=== PATIENT | female | born 1940 | race Caucasian/White ===

== ENCOUNTER 2019-06-09 17:38 | Inpatient (IN) | payer MEDICARE, MEDICAID ==
[~2019-06-09] VITALS: Ht 167.6 cm; Wt 70.3 kg
[2019-06-09] MEDS ORDERED: OLANZAPINE 10 MG VIAL IM ONE (18:00)
--- NOTE | 2019-06-09 18:05 | NUR ---
BIBDAUGHTER, SENT BY DR. HERNANDEZ FOR PSYCH MEDICAL CLEARANCE DUE TO AGGRESSIVE BEHAVIOR, HITTING HER DAUGHTER AND . PT IS MAURITANIAN-SPEAKING, NO GUAMANIAN. DOES NOT WANT TO SIT IN BED. ALERT, STABLE VITALS, AMBULATORY, RR EVEN AND UNLABORED. NO ACUTE DISTRESS NOTED. READY FOR EVAL.
--- NOTE | 2019-06-09 18:24 | NUR ---
SHIPPING RECEIVING CLERK/MED RECON UNABLE TO UPDATE MED-RECON AT THIS TIME. UNABLE TO OBTAIN INFO FROM THE PATIENT. PER DAUGHTER-TERET WILL BRING HOME MEDICATION SUPPLY LATER OR [facility]. PER DAUGHTER PREFFERED PHARMACY CLOSED DOWN LAST WEEK AND PCP OFFICE IS ALREADY CLOSE. PRIMARY NURSE AWARE.
[2019-06-09 18:55] LABS: BASOPHILS % (AUTO) 0.5 % (0.0-2.0); EOSINOPHILS % (AUTO) 2.4 % (0.0-6.0); HEMATOCRIT 41 % (33-45); HEMOGLOBIN 13.5 g/dL (11.5-14.8); LYMPHOCYTES # (AUTO) 1.7 /CMM (0.8-4.8); LYMPHOCYTES % (AUTO) 30.6 % (20.0-44.0); MEAN CORPUSCULAR HGB CONC 33 g/dl (31.0-36.0); MEAN CORPUSCULAR VOLUME 86 fL (82-100); MONOCYTES # (AUTO) 0.4 /CMM (0.1-1.30); MONOCYTES % (AUTO) 6.4 % (2.0-12.0); NEUTROPHILS # (AUTO) 3.3 /CMM (1.8-8.9); NEUTROPHILS % (AUTO) 60.1 % (43.0-81.0); PLATELET COUNT (AUTO) 234 /CMM (150-450); RED BLOOD CELL COUNT(AUTO) 4.83 MIL/uL (4.0-5.2); WHITE BLOOD COUNT (AUTO) 5.5 K/uL (4.3-11.0)
[2019-06-09 19:16] LABS: ALANINE AMINOTRANSFERASE 14 U/L (12-78); ALBUMIN 3.7 g/dL (3.4-5.0); ALKALINE PHOSPHATASE 66 U/L (46-116); ASPARTATE AMINOTRANSFERASE 11 U/L (15-37); BILIRUBIN,DIRECT 0.1 mg/dL (0.0-0.2); BILIRUBIN,TOTAL 0.5 mg/dL (0.2-1.0); CARBON DIOXIDE 31 mmol/L (21-32); CHLORIDE 105 mmol/L (98-107); CREATININE 1.1 mg/dL (0.6-1.3); GLUCOSE 109 mg/dL (74-106); SODIUM SERUM 142 mmol/L (136-145); TOTAL PROTEIN, SERUM 7.5 g/dL (6.4-8.2); UREA NITROGEN, BLOOD 19 mg/dL (7-18)
[2019-06-09 19:17] LABS: ACETAMINOPHEN < 5 ug/ml (10-30); SALICYLATE 0.2 mg/dL (2.8-20.0)
[2019-06-09 19:26] LABS: ALCOHOL, BLOOD < 3 mg/dL (0-0)
--- NOTE | 2019-06-09 20:42 | NUR ---
DIESEL SCOOP OPERATOR PINKY AT BEDSIDE FOR EVAL
--- NOTE | 2019-06-09 21:56 | NUR ---
REPORT GIVEN TO SHEILA DEL ANGEL FOR 211
--- NOTE | 2019-06-09 22:20 | NUR ---
PT TRANSFERRED TO UNIT VIA WC
--- NOTE | 2019-06-09 22:30 | NUR ---
ADMITTED THIS 79 YEARS OLD FEMALE FROM E. PATIENT WAS PLACED ON 5150 DUE TO AGGRESSIVE BEHAVIOR, GRAVELY DISABLE, . UPON FACE TO FACE ASSESSMENT PATIENT DENIES ANY SI/HI AT THIS TIME, NO BEHAVIOR PROBLEM NOTED, PATIENT ALERT, ORIENTED X 2 AMBULATORY DAUGHTER SIGN THE CONSENT PAPER DUE TO PATIENT IS UNABLE TO SPEAK BARBADIAN, ADVISEMENT EXPLAIN AND SERVE TO THE PATIENT WITH HOSPITAL POLICY AND HAND BOOK, SKIN ASSESSMENT IS DONE SKIN IS INTACT PATENT, NO OPEN WOUND OR BRUISES NOTED DAVID YOON AND VIPUL YOON NOTIFY MED RECON IS DONE. WILL CONTINUES TO MONITOR THE PATIENT FOR SAFETY AND FALL AND ENDORSE TO THE ONCOMING NURSE TO CONTINUITY OF CARE .
[2019-06-09] MEDS ORDERED: CELE200C PO (22:49)
[2019-06-09] MEDS: TEMAZEPAM 7.5 MG CAPSULE PO PRN (23:26)
[2019-06-09] MEDS ORDERED: MAGNESIUM HYDROXIDE 30 ML UDC PO PRN (23:30)
[2019-06-09] MEDS ORDERED: ACETAMINOPHEN 325 MG TABLET PO PRN (23:30)
[2019-06-09] MEDS ORDERED: MAG HYDROX/AL HYDROX/SIMETH 30 ML UDC PO PRN (23:30)
[2019-06-10 08:00] VITALS: BP 101/70
[2019-06-10] MEDS: CELECOXIB 100 MG CAPSULE PO SCH ×2 (08:29→21:19)
--- NOTE | 2019-06-10 10:56 | NUR ---
AFIA contacted pts daughter Maira [phone] and left a voicemail for callback.
[2019-06-10] MEDS: OLANZAPINE 2.5 MG TABLET PO SCH ×2 (12:13→21:19)
--- NOTE | 2019-06-10 13:10 | NUR ---
SW met with pts daughter Maira [phone] on this present day and received collateral information and discussed discharge and treatment planning. Daughter stated that she does not want pt to be hospitalized any longer than she needs to as she feels the psychiatric unit is not the best environment for pt. Daughter also stated that she is exploring SNF placement and would inform SW of her decision once she discussed it with pts and son.
[2019-06-10] MEDS: ENSURE ENLIVE 237 ML LIQUID (VANILLA) PO SCH ×2 (14:00→17:00)
--- NOTE | 2019-06-10 14:08 | NUR ---
INITIAL DISCHARGE PLAN: Per daughter Maira [phone] she wishes for pt to be discharged back home [address] [place] [address] but is also exploring SNF placement. AFIA will help form a safe and proper discharge in collaboration with .
[2019-06-10 15:44] LABS: APPEARANCE,URINE SL CLOUDY (CLEAR); BILIRUBIN,URINE NEGATIVE (NEGATIVE); BLOOD, URINE NEGATIVE Ery/uL (NEGATIVE); COLOR,URINE YELLOW (YELLOW); KETONES,URINE NEGATIVE (NEGATIVE); LEUKOCYTE ESTERASE ,URINE 1+ (NEGATIVE); NITRITE, URINE NEGATIVE (NEGATIVE); PROTEIN,URINE TRACE mg/dl (NEGATIVE); UGLUCOSE NEGATIVE (NEGATIVE)
--- NOTE | 2019-06-10 15:47 | NUR ---
GROUP NOTE: SW prompted pt to participate in group session on this present day discussing "treatment compliance." Pt is unable to engage in a meaningful conversation due to her Dementia and only being alert to self. SW used Setswana help desk assistant to engage pt however, pt was confused, disoriented, and disorganized.
[2019-06-10 15:59] LABS: RBC,URINE 0-2 /HPF (0-2)
[2019-06-10 16:00] VITALS: BP 126/78
[2019-06-10 16:00] LABS: BACTERIA,URINE Moderate /HPF (None Seen); SQUAMOUS EPITHELIAL CELL,UR Many /HPF (None Seen)
[2019-06-10] MEDS: LORAZEPAM 0.5 MG TABLET PO PRN (17:08)
[2019-06-10 20:00] VITALS: BP 98/67
[2019-06-10] MEDS: TEMAZEPAM 7.5 MG CAPSULE PO PRN (21:19)
[2019-06-11 08:00] VITALS: BP_SYST 126; BP_SYST 129; BP_DIAS 64; BP_DIAS 71
[2019-06-11] MEDS: ENSURE ENLIVE 237 ML LIQUID (VANILLA) PO SCH ×3 (08:10→16:25)
[2019-06-11] MEDS: OLANZAPINE 2.5 MG TABLET PO SCH ×4 (08:10→21:19)
[2019-06-11] MEDS: CELECOXIB 100 MG CAPSULE PO SCH ×2 (08:10→21:20)
--- NOTE | 2019-06-11 09:45 | NUR ---
GPS RN NOTE: DR. STACK NOTIFIED PT UA LABS, NO NEW ORDERS AT THIS TIME. WILL CONTINUE MONITORING.
[2019-06-11 11:25] LABS: BASOPHILS % (AUTO) 0.5 % (0.0-2.0); EOSINOPHILS % (AUTO) 1.9 % (0.0-6.0); HEMATOCRIT 40 % (33-45); HEMOGLOBIN 13.4 g/dL (11.5-14.8); LYMPHOCYTES # (AUTO) 1.4 /CMM (0.8-4.8); LYMPHOCYTES % (AUTO) 24.5 % (20.0-44.0); MEAN CORPUSCULAR HGB CONC 33 g/dl (31.0-36.0); MEAN CORPUSCULAR VOLUME 85 fL (82-100); MONOCYTES # (AUTO) 0.4 /CMM (0.1-1.30); MONOCYTES % (AUTO) 6.1 % (2.0-12.0); NEUTROPHILS # (AUTO) 3.9 /CMM (1.8-8.9); PLATELET COUNT (AUTO) 212 /CMM (150-450); RED BLOOD CELL COUNT(AUTO) 4.75 MIL/uL (4.0-5.2); WHITE BLOOD COUNT (AUTO) 5.8 K/uL (4.3-11.0)
[2019-06-11 11:39] LABS: CHOLESTEROL 167 mg/dL (<200); HDL CHOLESTEROL 43 mg/dL (40-60); LDL 113 mg/dL (0-99); TRIGLYCERIDES 82 mg/dL (30-150)
[2019-06-11 11:47] LABS: CALCIUM, SERUM 8.5 mg/dL (8.5-10.1); CARBON DIOXIDE 29 mmol/L (21-32); CHLORIDE 104 mmol/L (98-107); CREATININE 0.9 mg/dL (0.6-1.3); GLUCOSE 97 mg/dL (74-106); POTASSIUM 3.9 mmol/L (3.5-5.1); SODIUM SERUM 141 mmol/L (136-145); UREA NITROGEN, BLOOD 17 mg/dL (7-18)
[2019-06-11] MEDS: DIVALPROEX SODIUM 125 MG CAP.SPRINK PO SCH ×2 (12:14→21:19)
--- NOTE | 2019-06-11 15:01 | NUR ---
GROUP NOTE: SW prompted pt to participate in group session on this present day discussing "discharge planing." Pt is unable to engage in a meaningful conversation due to her Dementia and only being alert to self.
[2019-06-11 20:00] VITALS: BP 128/65
--- NOTE | 2019-06-12 06:24 | NUR ---
GPS RN NOTES: PT. REMOVING HER ID BAND, THROWING IN TRASH, PLACED PT. ID IN CHART.
[2019-06-12 08:00] VITALS: BP 139/76
[2019-06-12] MEDS: OLANZAPINE 2.5 MG TABLET PO SCH ×4 (08:00→21:34)
[2019-06-12] MEDS: ENSURE ENLIVE 237 ML LIQUID (VANILLA) PO SCH ×3 (08:41→17:00)
[2019-06-12] MEDS: DIVALPROEX SODIUM 125 MG CAP.SPRINK PO SCH ×2 (09:00→21:34)
[2019-06-12] MEDS: CELECOXIB 100 MG CAPSULE PO SCH ×2 (09:00→21:34)
[2019-06-12 16:05] VITALS: BP 131/64
[2019-06-12 20:00] VITALS: BP 132/78
[2019-06-12] MEDS: TEMAZEPAM 7.5 MG CAPSULE PO PRN (23:56)
[2019-06-13 08:00] VITALS: BP 161/74
[2019-06-13] MEDS: OLANZAPINE 2.5 MG TABLET PO SCH ×4 (08:10→21:21)
[2019-06-13] MEDS: CELECOXIB 100 MG CAPSULE PO SCH ×2 (08:10→21:00)
[2019-06-13] MEDS: ENSURE ENLIVE 237 ML LIQUID (VANILLA) PO SCH ×3 (08:10→17:39)
[2019-06-13] MEDS: DIVALPROEX SODIUM 125 MG CAP.SPRINK PO SCH ×2 (08:10→21:00)
[2019-06-13 16:00] VITALS: BP 148/68
[2019-06-14] MEDS: DIVALPROEX SODIUM 125 MG CAP.SPRINK PO SCH ×2 (01:22→08:11)
[2019-06-14] MEDS: CELECOXIB 100 MG CAPSULE PO SCH ×3 (01:22→21:00)
[2019-06-14] MEDS: OLANZAPINE 2.5 MG TABLET PO SCH ×5 (01:22→22:00)
[2019-06-14] MEDS: TEMAZEPAM 7.5 MG CAPSULE PO PRN (01:23)
--- NOTE | 2019-06-14 01:24 | NUR ---
GPS RN NOTE: PATIENT INITIALLY REFUSED TO TAKE HER MEDICATION. AFTER REDIRECTING THE PATIENT, PATIENT ABLE TO TAKE HER MEDS AND APPEARED TO BE COOPERATIVE. WILL CONTINUE TO MONITOR Q15 MINS FOR SAFETY
[2019-06-14 08:00] VITALS: BP 155/95
[2019-06-14] MEDS: ENSURE ENLIVE 237 ML LIQUID (VANILLA) PO SCH ×3 (08:11→16:04)
[2019-06-14] MEDS: LORAZEPAM 0.5 MG TABLET PO PRN (13:46)
[2019-06-14 15:36] LABS: BASOPHILS % (AUTO) 0.5 % (0.0-2.0); EOSINOPHILS % (AUTO) 3.5 % (0.0-6.0); HEMATOCRIT 40 % (33-45); LYMPHOCYTES % (AUTO) 33.8 % (20.0-44.0); MEAN CORPUSCULAR HGB CONC 33 g/dl (31.0-36.0); MEAN CORPUSCULAR VOLUME 85 fL (82-100); MONOCYTES # (AUTO) 0.4 /CMM (0.1-1.30); MONOCYTES % (AUTO) 7.2 % (2.0-12.0); NEUTROPHILS # (AUTO) 3.2 /CMM (1.8-8.9); PLATELET COUNT (AUTO) 195 /CMM (150-450); RED BLOOD CELL COUNT(AUTO) 4.66 MIL/uL (4.0-5.2); WHITE BLOOD COUNT (AUTO) 5.8 K/uL (4.3-11.0)
[2019-06-14 15:48] LABS: ALANINE AMINOTRANSFERASE 17 U/L (12-78); ALBUMIN 3.5 g/dL (3.4-5.0); ALKALINE PHOSPHATASE 74 U/L (46-116); ASPARTATE AMINOTRANSFERASE 11 U/L (15-37); BILIRUBIN,TOTAL 0.4 mg/dL (0.2-1.0); CALCIUM, SERUM 8.6 mg/dL (8.5-10.1); CARBON DIOXIDE 27 mmol/L (21-32); CHLORIDE 105 mmol/L (98-107); CREATININE 1.2 mg/dL (0.6-1.3); GLUCOSE 103 mg/dL (74-106); POTASSIUM 4.2 mmol/L (3.5-5.1); SODIUM SERUM 141 mmol/L (136-145); TOTAL PROTEIN, SERUM 7.1 g/dL (6.4-8.2); UREA NITROGEN, BLOOD 22 mg/dL (7-18)
--- NOTE | 2019-06-14 15:55 | NUR ---
Group Note: SW encouraged the pt to participate in group therapy but the pt appeared to be cognitively impaired and did not seem to understand what the SW was saying. Pt also appeared to be unpredictable with her behaviors as she is intrusive towards other patients and throws items. SW informed her that her SW will inform her when she will be discharged back home. Pt is not appropriate for group therapy.
[2019-06-14 16:00] VITALS: BP 148/90
[2019-06-14] MEDS ORDERED: DIVALPROEX SODIUM 125 MG CAP.SPRINK PO SCH (17:00)
[2019-06-14 17:57] LABS: APPEARANCE,URINE CLEAR (CLEAR); BILIRUBIN,URINE NEGATIVE (NEGATIVE); BLOOD, URINE NEGATIVE Ery/uL (NEGATIVE); COLOR,URINE YELLOW (YELLOW); KETONES,URINE NEGATIVE (NEGATIVE); LEUKOCYTE ESTERASE ,URINE NEGATIVE (NEGATIVE); NITRITE, URINE NEGATIVE (NEGATIVE); PROTEIN,URINE NEGATIVE (NEGATIVE); UGLUCOSE NEGATIVE (NEGATIVE); UROBILINOGEN,URINE 0.2 EU/dL (0.2)
[2019-06-14 19:54] VITALS: BP 100/59
[2019-06-15 08:00] VITALS: BP 129/68
[2019-06-15] MEDS: OLANZAPINE 2.5 MG TABLET PO SCH ×4 (09:05→21:35)
[2019-06-15] MEDS: ENSURE ENLIVE 237 ML LIQUID (VANILLA) PO SCH ×3 (09:05→17:42)
[2019-06-15] MEDS: CELECOXIB 100 MG CAPSULE PO SCH ×2 (09:05→21:35)
[2019-06-15 16:00] VITALS: BP 136/71
[2019-06-15 20:47] VITALS: BP 112/57
[2019-06-15] MEDS: TEMAZEPAM 7.5 MG CAPSULE PO PRN (21:35)
[2019-06-16 08:00] VITALS: BP 126/75
[2019-06-16] MEDS: CELECOXIB 100 MG CAPSULE PO SCH ×2 (08:45→20:26)
[2019-06-16] MEDS: OLANZAPINE 2.5 MG TABLET PO SCH ×4 (08:46→20:26)
[2019-06-16] MEDS: ENSURE ENLIVE 237 ML LIQUID (VANILLA) PO SCH ×3 (08:46→16:49)
[2019-06-16 16:00] VITALS: BP 121/80
[2019-06-16 20:18] VITALS: BP 136/83
[2019-06-16] MEDS: TEMAZEPAM 7.5 MG CAPSULE PO PRN (21:18)
[2019-06-17 08:00] VITALS: BP 106/65
[2019-06-17] MEDS: OLANZAPINE 2.5 MG TABLET PO SCH ×4 (08:21→20:22)
[2019-06-17] MEDS: ENSURE ENLIVE 237 ML LIQUID (VANILLA) PO SCH ×3 (08:22→16:28)
[2019-06-17] MEDS: CELECOXIB 100 MG CAPSULE PO SCH ×2 (08:22→20:22)
[2019-06-17 16:00] VITALS: BP 128/69
[2019-06-17] MEDS: OXCARBAZEPINE 150 MG TABLET PO SCH (20:22)
[2019-06-17 22:53] VITALS: BP_SYST 105; BP_SYST 121; BP_DIAS 61; BP_DIAS 69
--- NOTE | 2019-06-18 07:30 | NUR ---
RN AM SHIFT NOTE PATIENT ASLEEP IN BED, BED LOW TO FLOOR. SAFETY MEASURES IN PLACE. CALL LIGHT WITHIN REACH. VITALS WNL. ALL NEEDS MET AT THIS TIME. WILL CONTINUE TO MONITOR.
[2019-06-18 08:00] VITALS: BP 125/67
[2019-06-18] MEDS: OLANZAPINE 2.5 MG TABLET PO SCH ×4 (08:46→20:15)
[2019-06-18] MEDS: CELECOXIB 100 MG CAPSULE PO SCH ×2 (08:46→21:13)
[2019-06-18] MEDS: OXCARBAZEPINE 150 MG TABLET PO SCH ×2 (08:46→21:13)
[2019-06-18] MEDS: ENSURE ENLIVE 237 ML LIQUID (VANILLA) PO SCH ×3 (08:47→17:00)
[2019-06-18 16:00] VITALS: BP 125/86
[2019-06-18 20:00] VITALS: BP 117/80
[2019-06-18] MEDS: TEMAZEPAM 7.5 MG CAPSULE PO PRN (23:08)
[2019-06-19 08:00] VITALS: BP 136/61
[2019-06-19] MEDS: ENSURE ENLIVE 237 ML LIQUID (VANILLA) PO SCH ×3 (08:18→17:46)
[2019-06-19] MEDS: OXCARBAZEPINE 150 MG TABLET PO SCH ×2 (08:56→21:09)
[2019-06-19] MEDS: OLANZAPINE 2.5 MG TABLET PO SCH ×4 (08:57→21:09)
[2019-06-19] MEDS: CELECOXIB 100 MG CAPSULE PO SCH ×2 (08:57→21:09)
[2019-06-19 16:00] VITALS: BP 133/64
--- NOTE | 2019-06-19 16:27 | NUR ---
VERY CONFUSED,MED COMPLIANT,PLEASANT.VS STABLE.
[2019-06-19] MEDS: LORAZEPAM 0.5 MG TABLET PO PRN (17:21)
--- NOTE | 2019-06-19 17:21 | NUR ---
GIVEN ATIVAN FOR AGITATION.PT. A LITTLE RELUCTANT.
[2019-06-19 20:00] VITALS: BP 146/94
[2019-06-19] MEDS: TEMAZEPAM 7.5 MG CAPSULE PO PRN (21:09)
[2019-06-20 08:00] VITALS: BP 131/79
[2019-06-20] MEDS: OLANZAPINE 2.5 MG TABLET PO SCH ×4 (09:00→20:13)
[2019-06-20] MEDS: OXCARBAZEPINE 150 MG TABLET PO SCH ×2 (10:40→20:12)
[2019-06-20] MEDS: CELECOXIB 100 MG CAPSULE PO SCH ×2 (10:40→20:12)
[2019-06-20] MEDS: ENSURE ENLIVE 237 ML LIQUID (VANILLA) PO SCH ×3 (10:41→17:59)
[2019-06-20 16:00] VITALS: BP 128/82
--- NOTE | 2019-06-20 16:29 | NUR ---
RN NOTE: PATIENT REFUSED 1700 OLANZAPINE. PATIENT IS SLEEPING AND DOES NOT WANT TO BE BOTHERED. INFORMED HER THE IMPORTANCE OF THE DRUG AND SHE CONTINUES TO REFUSE.
[2019-06-20 20:00] VITALS: BP 135/70
[2019-06-21] MEDS: TEMAZEPAM 7.5 MG CAPSULE PO PRN (02:28)
[2019-06-21 08:00] VITALS: BP 117/61
[2019-06-21] MEDS: CELECOXIB 100 MG CAPSULE PO SCH ×2 (08:39→21:01)
[2019-06-21] MEDS: OLANZAPINE 2.5 MG TABLET PO SCH ×4 (08:39→21:01)
[2019-06-21] MEDS: ENSURE ENLIVE 237 ML LIQUID (VANILLA) PO SCH ×3 (08:39→17:04)
[2019-06-21] MEDS: OXCARBAZEPINE 150 MG TABLET PO SCH (08:40)
[2019-06-21 16:00] VITALS: BP 119/60
[2019-06-21] MEDS: LORAZEPAM 0.5 MG TABLET PO PRN (16:42)
--- NOTE | 2019-06-21 16:56 | NUR ---
GPS/RN-NOTES PATIENT IN THE DAY ROOM NOTED WITH DISROBING,AGGRESSIVE HITTING STAFF WITH HER HANDS AND SWINGING HER BLANKET AT STAFF WHEN REDIRECTED. PATIENT WAS ASSISTED IN THE ROOM AND STAFF ASSIST TO PUT HER GOWN. ATIVAN 0.5MG P.O GIVEN PRN ORDER. WILL CONT. MONITORING FOR SAFETY AND BEHAVIOR.
--- NOTE | 2019-06-21 17:00 | NUR ---
GPS/RN-NOTES PATIENT IN THE ROOM AWAKE,ALERT ,CALM,NO ACUTE DISTRESS NOTED.
[2019-06-21 19:53] VITALS: BP 120/68
[2019-06-22 08:00] VITALS: BP 133/75
[2019-06-22] MEDS: OLANZAPINE 2.5 MG TABLET PO SCH ×3 (08:00→21:02)
--- NOTE | 2019-06-22 08:59 | NUR ---
AFIA contacted pts daughter Maira [phone] and left a voicemail for callback.
[2019-06-22] MEDS: CELECOXIB 100 MG CAPSULE PO SCH ×2 (09:00→21:02)
[2019-06-22] MEDS: ENSURE ENLIVE 237 ML LIQUID (VANILLA) PO SCH ×3 (09:00→17:42)
--- NOTE | 2019-06-22 12:15 | NUR ---
WOUND CARE CONSULT: PT AGITATED, REFUSED SKIN ASSESSMENT. WILL SEE PT PT CONDITION PERMITS.
[2019-06-22 16:00] VITALS: BP 138/80
[2019-06-22 19:53] LABS: ALBUMIN 3.7 g/dL (3.4-5.0); BILIRUBIN,TOTAL 0.4 mg/dL (0.2-1.0); CALCIUM, SERUM 9.2 mg/dL (8.5-10.1); CREATININE 1.1 mg/dL (0.6-1.3); TOTAL PROTEIN, SERUM 7.4 g/dL (6.4-8.2)
[2019-06-22 20:21] LABS: POTASSIUM 4.5 mmol/L (3.5-5.1)
[2019-06-22 20:25] VITALS: BP 131/92
[2019-06-22 21:13] LABS: BASOPHILS % (AUTO) 0.6 % (0.0-2.0); EOSINOPHILS % (AUTO) 2.6 % (0.0-6.0); HEMATOCRIT 42 % (33-45); HEMOGLOBIN 13.6 g/dL (11.5-14.8); LYMPHOCYTES # (AUTO) 2.4 /CMM (0.8-4.8); LYMPHOCYTES % (AUTO) 35.8 % (20.0-44.0); MEAN CORPUSCULAR HGB CONC 33 g/dl (31.0-36.0); MEAN CORPUSCULAR VOLUME 85 fL (82-100); MONOCYTES # (AUTO) 0.4 /CMM (0.1-1.30); MONOCYTES % (AUTO) 5.8 % (2.0-12.0); NEUTROPHILS # (AUTO) 3.7 /CMM (1.8-8.9); NEUTROPHILS % (AUTO) 55.2 % (43.0-81.0); PLATELET COUNT (AUTO) 197 /CMM (150-450); WHITE BLOOD COUNT (AUTO) 6.7 K/uL (4.3-11.0)
[2019-06-23 00:14] LABS: APPEARANCE,URINE SL CLOUDY (CLEAR); BILIRUBIN,URINE NEGATIVE (NEGATIVE); BLOOD, URINE 2+ Ery/uL (NEGATIVE); COLOR,URINE YELLOW (YELLOW); KETONES,URINE NEGATIVE (NEGATIVE); LEUKOCYTE ESTERASE ,URINE TRACE (NEGATIVE); NITRITE, URINE POSITIVE (NEGATIVE); PH,URINE 7.5 (5.0-8.0); PROTEIN,URINE NEGATIVE (NEGATIVE); UGLUCOSE NEGATIVE (NEGATIVE); UROBILINOGEN,URINE 0.2 EU/dL (0.2)
[2019-06-23 00:32] LABS: BACTERIA,URINE Moderate /HPF (None Seen); SQUAMOUS EPITHELIAL CELL,UR Moderate /HPF (None Seen)
[2019-06-23] MEDS: TEMAZEPAM 7.5 MG CAPSULE PO PRN ×2 (01:32→22:33)
--- NOTE | 2019-06-23 06:48 | NUR ---
Psych MD Dr Lira notified of the UA results of the patient and she gave an order to notify the incoming AM attending MD .
[2019-06-23 08:00] VITALS: BP 133/66
[2019-06-23] MEDS: ENSURE ENLIVE 237 ML LIQUID (VANILLA) PO SCH ×3 (08:45→17:34)
[2019-06-23] MEDS: OLANZAPINE 2.5 MG TABLET PO SCH ×4 (09:29→19:39)
[2019-06-23] MEDS: CELECOXIB 100 MG CAPSULE PO SCH ×2 (09:29→21:24)
--- NOTE | 2019-06-23 12:05 | NUR ---
WOUND CARE CONSULT: PT IS UNCOOPERATIVE AT TIMES. DRY SHINY PINK LESION/SCAR NOTED TO POSTERIOR HEAD, PRESENT ON ADMISSION. DEFER TO MD. PT IS CONTINENT AND AMBULATORY PER NURSING STAFF. WILL SEE PRN. Addendum: 06/23/19 at 1206 by MICHAEL SARMIENTO WNDNU Amended: Links added.
[2019-06-23] MEDS: CEFTRIAXONE 1 G VIAL IM SCH (12:16)
--- NOTE | 2019-06-23 12:30 | NUR ---
AFIA contacted pts daughter Maira [phone] and left a voicemail for callback.
--- NOTE | 2019-06-23 12:44 | NUR ---
EVEN WITH HVAC SALES ENGINEER PT. REFUSING ANTIBIOTIC INJECTION.CALL OUT TO JORDANA BRYANT.
--- NOTE | 2019-06-23 14:00 | NUR ---
GROUP NOTE: SW encouraged pt to participate in group therapy on this present day to discuss "positive coping skills." Pt has Dementia and unable to engage in a meaningful conversation. Pt is only alert to her name with behavioral disturbance. Pt unable to participate in a group discussion.
[2019-06-23] MEDS: CEPHALEXIN MONOHYDRATE 500 MG CAPSULE PO SCH ×2 (15:03→21:26)
[2019-06-23 16:00] VITALS: BP 134/66
[2019-06-23 20:06] VITALS: BP_SYST 129; BP_SYST 134; BP_DIAS 57; BP_DIAS 76
[2019-06-24] MEDS: LORAZEPAM 0.5 MG TABLET PO PRN ×2 (01:36→16:11)
[2019-06-24] MEDS: ENSURE ENLIVE 237 ML LIQUID (VANILLA) PO SCH ×3 (08:30→17:27)
[2019-06-24] MEDS: OLANZAPINE 2.5 MG TABLET PO SCH ×4 (08:30→19:50)
[2019-06-24] MEDS: CEPHALEXIN MONOHYDRATE 500 MG CAPSULE PO SCH (08:30)
[2019-06-24] MEDS: CELECOXIB 100 MG CAPSULE PO SCH ×2 (08:30→21:06)
[2019-06-24] MEDS: CEFTRIAXONE 1 G VIAL IM SCH (10:17)
--- NOTE | 2019-06-24 10:22 | NUR ---
AFIA faxed SNF referral to [facility] Address: [address], [place] [address] for review.
[2019-06-24] MEDS ORDERED: CEFTRIAXONE 1 G in IV D5W 50 ML IV SCH (11:00)
--- NOTE | 2019-06-24 11:22 | NUR ---
SW received a call from mian Rodney at [facility] Address: [address] [place] [address] stating pt has been accepted to the facility.
--- NOTE | 2019-06-24 15:30 | NUR ---
AFIA contacted pts daughter Maira [phone] and left a voicemail informing her pt will be discharged tomorrow to [facility].
[2019-06-24 16:00] VITALS: BP 142/76
--- NOTE | 2019-06-24 16:16 | NUR ---
RN NOTE: PATIENT IS RESTLESS, PRN ATIVAN GIVEN
--- NOTE | 2019-06-24 19:06 | NUR ---
RN NOTE: PATIENT'S SON (MADONNA) [phone] CAME TO VISIT THE PATIENT AND ASKED ABOUT HER DISCHARGE. WHEN I INFORMED HIM ON THE FACILITY SHE WILL BE TRANSFERRED TO, THE SON STATED HE DOES NOT WANT HIS MOTHER GOING THERE. SON IS REQUESTING TO TRANSFER PATIENT TO [facility] [address]. INFORMED ONCOMING RN ON THE REQUEST SON MADE AND TO ENDORSE TO FOLLOWING SHIFT TO INFORM ANTONETTE FORMULATION TECHNICIAN WHEN SHE ARRIVES IN THE MORNING.
[2019-06-24 20:28] VITALS: BP 120/65
[2019-06-25 08:00] VITALS: BP 118/76
[2019-06-25] MEDS: OLANZAPINE 2.5 MG TABLET PO SCH ×2 (08:32→13:35)
[2019-06-25] MEDS: ENSURE ENLIVE 237 ML LIQUID (VANILLA) PO SCH ×2 (08:32→13:35)
[2019-06-25] MEDS: CELECOXIB 100 MG CAPSULE PO SCH (08:32)
--- NOTE | 2019-06-25 08:36 | NUR ---
SW received a call from pts daughter Maira [phone] and son Cindy [phone] who stated that they do not want pt discharging to [facility] ([facility] Address: [address] [place] [address] and stated that they wanted pt to be discharged to [facility] Address: [address], [place] [address] if not they will take pt home. SW stated that she would contact [facility] to ask if they have beds available for today.
--- NOTE | 2019-06-25 09:00 | NUR ---
SW contacted [facility] Address: [address], [place] [address] who stated there are no female beds available on this present day.
--- NOTE | 2019-06-25 09:01 | NUR ---
AFIA contacted pts daughter Maira [phone] and informed her [facility] Address: [address], [place] [address] does not have beds available. Daughter stated that she will take pt home and continue caring for her 12/05 as she is her [facility] caregiver and follow up with pts primary care doctor Dr. Neema Louis Address: [address], [place] [address] Lira [address] [id number] . Daughter stated she would come at 11:00am on this present day to take pt home [address] [facility] [address].
[2019-06-25] MEDS: CEFTRIAXONE 1 G VIAL IM SCH (09:11)
--- NOTE | 2019-06-25 09:23 | NUR ---
AFIA received call from Dr Lira [address] [place] [phone] informing her that Dr. Neema Louis Address: [address] [address], [place] [address] made a bed available for pt at at [facility] Address: [address], [place] [address] . AFIA contacted [facility] and spoke with Misty, support coordinator who requested referral be faxed to fo review.
--- NOTE | 2019-06-25 09:43 | NUR ---
AFIA met with pts deondre White [phone] and informed him the following: SW received call from Dr Lira [address] [address], [place] [address] Neema Louis Address: [address] [facility] [address], [address] made a bed available for pt at at [facility] Address: [address] [place] [address] . AFIA contacted [facility] and spoke with Misty medication coordinator who requested referral be faxed to fo review. SW is currently awaiting confirmation from [facility] for admissions, if pt is accepted pt will be discharged on this present day to [facility] if not pt will be discharged home. Son agreed with discharge plan.
--- NOTE | 2019-06-25 10:42 | NUR ---
SW received a call from Misty, metal control coordinator at [facility] Address: [address], [place] [address] stating pt has been accepted to the facility and will be placed in room 26A.
--- NOTE | 2019-06-25 10:46 | NUR ---
SW contacted pts daughter Maira [phone] and Son Cindy [phone] and informed them [facility] Address: [facility] [address] , [place] [address] has accepted pt and will be discharged on his present day at 1:30pm via ambulance. Both children were agreeable to discharge plan and happy.
--- NOTE | 2019-06-25 10:53 | NUR ---
DISCHARGE NOTE: Pt discharging at 1:30pm via [facility] to [facility] Address: [address], [place] [address] room 26A. Pts daughter Maira [phone] has been notified and agrees with discharge plan. Pts mood is confused but pleasant with congruent affect. Pt is at baseline responding to auditory and visual hallucinations. Pt denied suicidal/homicidal ideations. Pt will be under the care of Psychiatrist: Dr. Antony Garcia Address: [place] [address] and Binder Layer: Dr. Neema Louis Address: [address] [address] . The multidisciplinary exit care form was done, printed, signed, and given to the patient.
[2019-06-25] MEDS: LORAZEPAM 0.5 MG TABLET PO PRN (13:50)
--- NOTE | 2019-06-25 13:51 | NUR ---
RN NOTE: PATIENT IS ANXIOUS AND RESTLESS. PRN ATIVAN GIVEN.
--- NOTE | 2019-06-25 14:46 | NUR ---
INSTALLATION HELPER NOTE: PATIENT IS A 79 YEAR OLD FEMALE DISCHARGED TO [facility] [address] [facility] [phone] .PATIENT IS IN STABLE CONDITION. VSS. NO ACUTE DISTRESS NOTED. COMPLIANT WITH MEDICATION MANAGEMENT. COOPERATIVE WITH PLAN OF CARE. PSYCHIATRIC TREATMENT PLANS MET. MEDICAL TREATMENT PLANS DEFERRED FOR CONTINUAL MONITORING. DENIES SI/HI VAH AT THE TIME OF DISCHARGE. WOUND PICTURES TAKEN AND DOCUMENTED IN CHART. EDUCATED PATIENT ABOUT AFTERCARE WITH COPY PROVIDED. RETURNED PERSONAL BELONGINGS TO PATIENT. MEDICATIONS RECONCILED WITH DR العراقي AND DR HERNANDEZ ALONG WITH PSYCHIATRIC DISCHARGE ORDERS. DISCHARGE PAPERWORK SIGNED. FOR FOLLOW UP WITH PSYCHIATRIST DR MURILLO [address] [facility] [address] AND LINK AND LINK KNITTING MACHINE OPERATOR DR. RAHMAN [address] [facility] [address] WITHIN 1 WEEK. PATIENT LEFT THE [facility] GPS AT 1355 VIA TRANSPORTATION.
== END 2019-06-25 13:55 | DRG 885 ==
LOC: ER 17:38 → GPS 21:28
PROVIDERS: ADMIT Psychiatry & Neurology Psychosomatic Medicine; ATTEND Student in an Organized Health Care Education/Training Program
DX: F25.0 Schizoaffective disorder, bipolar type (principal); F01.50 Vascular dementia, unspecified severity, without behavioral disturbance, psychotic disturbance, mood disturbance, and anxiety; N39.0 Urinary tract infection, site not specified; F03.90 Unspecified dementia, unspecified severity, without behavioral disturbance, psychotic disturbance, mood disturbance, and anxiety; F32.9 Major depressive disorder, single episode, unspecified; F29 Unspecified psychosis not due to a substance or known physiological condition; Z73.6 Limitation of activities due to disability; M19.90 Unspecified osteoarthritis, unspecified site; Z91.14 Patient's other noncompliance with medication regimen; Z82.49 Family history of ischemic heart disease and other diseases of the circulatory system
CPT/HCPCS: 36415; 80048-TC; 80053-TC; 80061-TC; 80076-TC; 80305; 81000-TC; 85025-TC; 87081-TC; 87086-TC; 97116-TC; 97530-TC; G0480; J0696; J3490; J7060